=== PATIENT | male | born 1955 | race Caucasian/White ===

== ENCOUNTER → 2020-11-03 | Outpatient (CLI) | payer BC, MEDICARE ==
[~2020-11-03] MED LIST: ALLEGRA ALLERG180 MG PO; FLOMAX 0.4 MG0.4 MG PO; KETOPROFEN75 MG PO; KETOROLAC TROME10 MG PO; LESCOL XL80 MG PO; LORTAB 5-325 M1 EACH PO; NABUMETONE750 MG PO; NEURONTIN 300300 MG PO; NORVASC 5 MG TAB5 MG PO; ZOFRAN4 MG PO
== END ==
LOC: CT 08:22
DX: M48.02 Spinal stenosis, cervical region (principal)
CPT/HCPCS: 36415; 70492; 82565; Q9963